=== PATIENT | male | born 1995 | race African-American/Black ===

== ENCOUNTER 2020-06-08 10:14 | Emergency (ER) | payer SELFPAY ==
[2020-06-08 10:17] VITALS: BP 131/79; PULSE 81; RESP 18; TEMP 37.1; O2SAT 100
--- NOTE | 2020-06-08 11:36 | ED.MALEGU ---
HPI - Male Genitourinary General Chief complaint: Urogenital-Male <Shelbi Park PA-C - Last Filed: 06/08/20 12:54> Stated complaint: rectal bleeding <YOUNG Brown Last Filed: 06/08/20 12:54> Time Seen by Provider: 06/08/20 10:48 <Shelbi Park PA-C - Last Filed: 06/08/20 12:54> Source: patient <YOUNG Brown Last Filed: 06/08/20 12:54> Mode of arrival: ambulatory <YOUNG Brown Last Filed: 06/08/20 12:54> Limitations: no limitations <YOUNG Brown Last Filed: 06/08/20 12:54> History of Present Illness HPI Narrative: This is a 24-year-old male that presents the emergency department for urethral bleeding noted this morning. Reports after he had sex with his partner he noted bleeding of his urethra. Reports since he has urinated without any pain or bleeding. The bleeding has now stopped. Would like tested for STDs. Denies fever, abdominal pain, vomiting, or abnormal urethral discharge. <YOUNG Brown Last Filed: 06/08/20 12:54> Related Data Home medications: Home Medications Medication Instructions Recorded Confirmed No Home Medications 06/08/20 06/08/20 <YOUNG Brown Last Filed: 06/08/20 12:54> Allergies/Adverse reactions: Allergies Allergy/AdvReac Type Severity Reaction Status Date / Time No Known Allergies Allergy Verified 06/08/20 10:20 <YOUNG Brown Last Filed: 06/08/20 12:54> Review of Systems Review of Systems: Narrative: CONSTITUTIONAL: Denies fever GASTROINTESTINAL: Denies abdominal pain, nausea, vomiting GENITOURINARY: Denies dysuria or hematuria. <YOUNG Brown Last Filed: 06/08/20 12:54> All systems reviewed & are unremarkable except as noted in HPI and below <YOUNG Brown Last Filed: 06/08/20 12:54> PMF Past Medical History Medical History: Medical History (Updated 06/08/20 @ 12:52 by Shelbi Park PA-C) No active medical problems <Shelbi Park PA-C - Last Filed: 06/08/20 12:54> Social History Social History: Social History (Updated 06/08/20 @ 11:38 by Shelbi Park PA-C) Smoking status: Never smoker <Shelbi Park PA-C - Last Filed: 06/08/20 12:54> Exam Narrative: Exam Narrative: GENERAL: Well-appearing, well-nourished, and in no acute distress. HEAD: Normocephalic, atraumatic. EYES: EOMI. CHEST: Clear to auscultation. No respiratory distress. No wheezes rales or rhonchi HEART: Regular rate and rhythm. No murmur heard. Normal peripheral pulses. ABDOMEN: Soft, nontender, nondistended, normal active bowel sounds. EXTREMITIES: Normal range of motion. No edema. SKIN: Warm, dry, no rash. NEURO: No focal deficits. Alert and oriented x3. PSYCH: Normal mood and affect MALE GENITAL: Normal external genitalia. No abnormal urethral discharge or bleeding <Shelbi Park PA-C - Last Filed: 06/08/20 12:54> Course Vital Signs Vital signs: Vital Signs Temperature 98.8 F 06/08/20 10:17 Pulse Rate 81 06/08/20 10:17 Respiratory Rate 18 06/08/20 10:17 Blood Pressure 131/79 06/08/20 10:17 Pulse Oximetry 100 06/08/20 10:17 Temperature 98.8 F 06/08/20 10:17 Pulse Rate 78 06/08/20 13:03 Respiratory Rate 17 06/08/20 13:03 Blood Pressure 135/76 06/08/20 13:03 Pulse Oximetry 99 06/08/20 13:03 <Shelbi Park PA-C - Last Filed: 06/08/20 12:54> Vital Signs Temperature 98.8 F 06/08/20 10:17 Pulse Rate 81 06/08/20 10:17 Respiratory Rate 18 06/08/20 10:17 Blood Pressure 131/79 06/08/20 10:17 Pulse Oximetry 100 06/08/20 10:17 Temperature 98.8 F 06/08/20 10:17 Pulse Rate 78 06/08/20 13:03 Respiratory Rate 17 06/08/20 13:03 Blood Pressure 135/76 06/08/20 13:03 Pulse Oximetry 99 06/08/20 13:03 <Guillermina Traylor MD - Last Filed: 06/08/20 14:12> MDM - Male Genitourinary MDM Narrative Medical decision making narrative:
[2020-06-08 12:11] LABS: Add Urine Microscopic? YES; Appearance Urine Clear (Clear); Bacteria Urine Trace /hpf; Bilirubin Urine Negative (Negative); Blood Urine 2+ (Negative); Color Urine Yellow (Yellow); Glucose Urine UA Negative (Negative); Hyaline Casts Urine 50+ /lpf; Ketones Urine Negative (Negative); Leukocyte Esterase Ur Trace LEU/UL (Negative); Mucus Urine Heavy /lpf; Nitrate Urine Negative (Negative); Protein Urine 2+ mg/dL (Negative); RBC Urine >75 /hpf (0-2); Specific Grav Ur 1.029 (1.001-1.035); Squamous Epithelial Cell Urine Rare /hpf (Few)
[2020-06-08] MEDS: metroNIDAZOLE 250 MG TABLET 2000 MG PO (12:41)
[2020-06-08] MEDS: AZITHROMYCIN 250 MG TABLET 1000 MG PO (12:43)
[2020-06-08] MEDS: cefTRIAXone 250 MG VIAL IM (12:43)
[2020-06-08 13:03] VITALS: BP 135/76; PULSE 78; RESP 17; O2SAT 99
== END 2020-06-08 13:04 | disposition home or self-care (01) ==
PROVIDERS: Physician Assistant; Emergency Provider General Practice
DX: N30.01 Acute cystitis with hematuria (principal)
CPT/HCPCS: 81001; 87086; 87088; 96372; 99283; A9270; J0696

== ENCOUNTER 2022-04-15 22:50 | Emergency (ER) | payer SELFPAY ==
[2022-04-15 23:41] VITALS: BP 135/86; PULSE 81; RESP 16; TEMP 36.6; O2SAT 97
--- NOTE | 2022-04-16 00:10 | ED.MALEGU ---
HPI - Male Genitourinary General Chief complaint: Urogenital-Male Stated complaint: STD test Time Seen by Provider: 04/16/22 00:04 History of Present Illness HPI Narrative: Mr. Dalton is a 26 gentleman who presented to the emergency room with complaints of burning with urination. Patient states that yesterday he noted burning with urination, and today he noticed a discharge from his penis. Patient states he is unsure of the color of the discharge. Patient states he is in a monogamous relationship and has been having unprotected sex with one lady for the last month. Patient states prior to this month he had been having unprotected sex with 2 different females. Patient denies any homosexual activity. Patient denies any fever or chills. Patient denies any abdominal pain. Patient denies any nausea, vomiting, constipation, or diarrhea. Patient denies ever having an STD. Related Data Home Medications Medication Instructions Recorded Confirmed No Home Medications 04/15/22 Allergies Allergy/AdvReac Type Severity Reaction Status Date / Time No Known Allergies Allergy Verified 04/15/22 23:43 Review of Systems Review of Systems: A 12 point review of system was completed the patient apart positive negative per HPI remainder unremarkable PMFSH Past Medical History Medical History (Updated 04/16/22 @ 01:21 by Shira Parkinson APRN) Patient denies significant medical history Exam Narrative: Constitutional: Patient is well-nourished in no acute distress HEENT: Moist mucous membranes. No scleral icterus. No lymphadenopathy. Lungs: Lung sounds are clear to auscultation bilaterally. No accessory muscle use. No rhonchi, rales, or wheezes noted. Cardiovascular: Apical pulse is regular rate and rhythm. S1-S2 noted, no S3 or S4 noted. No gallops, murmurs, or rubs noted. Abdomen: Soft, round, and nontender. No palpable masses. : Patient refuses genital urinary exam. Skin: No rashes or lesions. Warm and dry. Skin is intact. Neurological: No focal neurological deficits. Cranial nerves II-XII grossly intact. Psychiatric: Cooperative, appropriate mood, and affect. Course Course Emergency Course: Patient has remained stable throughout the emergency room visit. Patient's urinalysis does show urinary tract infection. At this time I am unable to tell if it is from an STD or UTI. Will treat patient prophylactically for STD and explained that he will receive a call if he is positive. Discussed with patient that he should start using protection if he is going to be outside of monogamous relationship. Patient verbalized understanding to this. Also discussed with patient that he needs to follow-up with his primary care provider for any further recommendations. Patient needs to follow-up with his primary care provider if his symptoms do not resolve. Patient verbalized understanding to above plan of care. PROFESSOR OF MUSICOLOGY/PA Physician Supervision Dr. Donnie Vernon Vital Signs Vital signs: Vital Signs Temperature 36.6 C 04/15/22 23:41 Pulse Rate 81 04/15/22 23:41 Respiratory Rate 16 04/15/22 23:41 Blood Pressure 135/86 04/15/22 23:41 Pulse Oximetry 97 04/15/22 23:41 Oxygen Delivery Room Air 04/15/22 23:41 Temperature 36.6 C 04/15/22 23:41 Pulse Rate 81 04/15/22 23:41 Respiratory Rate 16 04/15/22 23:41 Blood Pressure 135/86 04/15/22 23:41 Pulse Oximetry 97 04/15/22 23:41 Oxygen Delivery Room Air 04/15/22 23:41 MDM - Male Genitourinary MDM Narrative Medical decision making narrative: Patient will be treated for sexual transmitted disease and discharged home. Differential Diagnosis Differential diagnosis: Likely urinary tract infection, urethritis, prostatitis and other (Chlamydia, gonorrhea) Lab Data Labs: Lab Results 04/16/22 04/16/22 Range/Units 00:21 00:21 Urine Color Yellow (Yellow) Urine Appearance Clear (Clear) Urine pH 5.5 (5.0-9.0) Ur Specific [place] >= 1.030
[2022-04-16 00:38] LABS: Appearance Urine Clear (Clear); Bilirubin Urine Negative (Negative); Color Urine Yellow (Yellow); Glucose Urine UA Negative (Negative); Ketones Urine Trace mg/dL (Negative); Leukocyte Esterase Ur 1+ LEU/UL (Negative); Nitrate Urine Negative (Negative); Protein Urine 2+ mg/dL (Negative); Specific Grav Ur >= 1.030 (1.001-1.035); Urobilinogen Urine 0.2 mg/dL (<2.0); pH Urine 5.5 (5.0-9.0)
[2022-04-16 00:44] LABS: Bacteria Urine Trace /hpf; Mucus Urine Heavy /lpf; RBC Urine 21-50 /hpf (0-2); Squamous Epithelial Cell Urine Occasional /hpf (Few); WBC Urine >75 /hpf
[2022-04-16 00:46] LABS: Add Urine Microscopic? YES; Blood Urine Trace (Negative)
[2022-04-16] MEDS: cefTRIAXone 1 GM VIAL 0.5 GM IM (01:42)
[2022-04-16] MEDS: AZITHROMYCIN 250 MG TABLET 1000 MG PO (01:42)
== END 2022-04-16 02:01 | disposition home or self-care (01) ==
PROVIDERS: Emergency Provider Nurse Practitioner Adult Health
DX: N39.0 Urinary tract infection, site not specified (principal)
CPT/HCPCS: 81001; 87086; 87491; 87591; 96372; 99283; A9270; J0696

== ENCOUNTER 2024-10-28 19:13 | Emergency (ER) | payer SELFPAY ==
[2024-10-28 19:14] VITALS: BP 146/103; PULSE 108; RESP 15; TEMP 36.4; O2SAT 100
--- NOTE | 2024-10-28 20:40 | ED.GENADULT ---
HPI - General Adult General Chief complaint: Urogenital-Male Stated complaint: std check Time Seen by Provider: 10/28/24 20:31 History of Present Illness HPI narrative: patient 29-year-old gentleman presents emergency department chief complaint of rash on his penis. Patient reports that he had a scaly rash the base of his penis reports no blisters denies itching denies redness. The patient denies urethral discharge does report that he would like to be checked for STDs Related Data Home Medications ?Medication ?Instructions ?Recorded ?Confirmed ?Last Taken ?Type No Home Medications 04/15/22 Unknown History Allergies Allergy/AdvReac Type Severity Reaction Status Date / Time No Known Allergies Allergy Verified 04/18/24 12:53 Review of Systems Review of Systems: A 10 system review of systems was completed on the patient and is negative except for what is stated in the HPI. Nursing and ancillary documentation was reviewed. [facility] Past Medical History Medical History No active medical problems Patient denies significant medical history Social History Social History Smoking status: Never smoker Exam Narrative: GENERAL: Well-appearing, well-nourished, and in no acute distress. HEAD: Normocephalic, atraumatic. EYES: PERRLA and EOMI. ENT: Nares clear, no rhinorrhea or epistaxis. Mucous membranes moist. NECK: Supple. CHEST: Clear to auscultation. No respiratory distress. HEART: Regular rate and rhythm. No murmur heard. Normal peripheral pulses. ABDOMEN: Soft, nontender, nondistended, normal active bowel sounds. : Dry scaly skin around the base of the penis no blisters, no redness EXTREMITIES: Normal range of motion. No edema. SKIN: Warm, dry, no rash. NEURO: No focal deficits. Alert and oriented x3. PSYCH: Normal mood and affect. Course Vital Signs Vital signs: Vital Signs Temperature 36.4 C L 10/28/24 19:14 Pulse Rate 108 H 10/28/24 19:14 Respiratory Rate 15 10/28/24 19:14 Blood Pressure 146/103 H 10/28/24 19:14 Pulse Oximetry 100 10/28/24 19:14 Oxygen Delivery Room Air 10/28/24 19:14 Temperature 36.4 C L 10/28/24 19:14 Pulse Rate 108 H 10/28/24 19:14 Respiratory Rate 15 10/28/24 19:14 Blood Pressure 146/103 H 10/28/24 19:14 Pulse Oximetry 100 10/28/24 19:14 Oxygen Delivery Room Air 10/28/24 19:14 Medical Decision Making MDM Narrative Medical decision making narrative: differential diagnosis includes chlamydia gonorrhea, tinea Vital Signs Vital Signs: Vital Signs Temperature 36.4 C L 10/28/24 19:14 Pulse Rate 108 H 10/28/24 19:14 Respiratory Rate 15 10/28/24 19:14 Blood Pressure 146/103 H 10/28/24 19:14 Pulse Oximetry 100 10/28/24 19:14 Oxygen Delivery Room Air 10/28/24 19:14 Temperature 36.4 C L 10/28/24 19:14 Pulse Rate 108 H 10/28/24 19:14 Respiratory Rate 15 10/28/24 19:14 Blood Pressure 146/103 H 10/28/24 19:14 Pulse Oximetry 100 10/28/24 19:14 Oxygen Delivery Room Air 10/28/24 19:14 Lab Data Labs: Lab Results 10/28/24 Range/Units 19:20 C. trachomatis (PCR) Not detected (NOT DETECTE) N. gonorrhoeae (PCR) Not detected (NOT DETECTE) Discharge Plan Discharge Clinical Impression: Tinea cruris Patient Disposition: Home, Self-Care Condition: Stable Instructions: Antibiotic Form Patient Language: Korean Prescriptions: New ketoconazole 2 % cream 1 applic topical BID Qty: 30 0RF No Action No Home Medications ciprofloxacin HCl 500 mg tablet 500 mg PO Q12H 5 Days Qty: 10 0RF Follow-up/Referrals: PHYSICIAN,[employer] [Primary Care Provider] - Mohan Elder MD [Physician] - Time of Disposition: 21:17
[2024-10-28 20:59] LABS: Chlamydia trachomatis NOT DETECTED (NOT DETECTE); Neisseria gonorrhoeae PCR NOT DETECTED (NOT DETECTE)
== END 2024-10-28 21:30 | disposition home or self-care (01) ==
PROVIDERS: Emergency Provider Emergency Medicine
DX: B35.6 Tinea cruris (principal)
CPT/HCPCS: 87491; 87591; 99283